=== PATIENT | female | born 1995 | race Caucasian/White ===

== ENCOUNTER 2024-07-23 13:34 | Day surgery (SDC) | payer OTHER ==
[~2024-07-23] VITALS: Ht 162.6 cm; Wt 70.5 kg
[~2024-07-23 13:34] MED LIST: Atropine Sulfate 0.1 MG/ML 10ML SYR ONE; Glycopyrrolate 0.2 MG/ML 1MLVIAL ONE; Lactated Ringer's 1,000 ML IV ONE; Lidocaine 2% 5 ML SDV ONE; Lidocaine HCl/Pf 1% 5 ML VIAL ONE; Methylene Blue 1% 100 MG/10 ML VIAL ONE; Ondansetron HCl 2 MG / ML 2ML Vial ONE; ePHEDrine Sulfate 50 MG/ML 1ML Injection ONE; propofoL 50 ML IV ONE
[2024-07-23] MEDS ORDERED: Bentyl10 MG (13:45)
[2024-07-23] MEDS ORDERED: INCASSIA0.35 MG (13:46)
[2024-07-23] MEDS ORDERED: METO5A (13:46)
[2024-07-23] MEDS ORDERED: Prometrium200 MG (13:47)
[2024-07-23] MEDS ORDERED: Lactated Ringer's 1,000 ML IV ONE (14:17)
[2024-07-23 15:31] VITALS: BP 108/66
== END 2024-07-23 15:45 | disposition home or self-care (01) ==
LOC: ORSCSDS 13:34
PROVIDERS: Surgery
PROC: 0DB98ZX Excision of Duodenum, Via Natural or Artificial Opening Endoscopic, Diagnostic (ICD-10-PCS; principal; 2024-07-23 14:30)
PROC: 0DBB8ZX Excision of Ileum, Via Natural or Artificial Opening Endoscopic, Diagnostic (ICD-10-PCS; principal; 2024-07-23 14:30)
PROC: 0DB78ZX Excision of Stomach, Pylorus, Via Natural or Artificial Opening Endoscopic, Diagnostic (ICD-10-PCS; principal; 2024-07-23 14:30)
PROC: 0DBE8ZX Excision of Large Intestine, Via Natural or Artificial Opening Endoscopic, Diagnostic (ICD-10-PCS; principal; 2024-07-23 14:30)
DX: R19.4 Change in bowel habit (principal); R11.0 Nausea; R10.84 Generalized abdominal pain; K29.70 Gastritis, unspecified, without bleeding; Z79.899 Other long term (current) drug therapy
CPT/HCPCS: 88305; 88342; J0461; J2003; J2405; J2704; J7120; Q9968